=== PATIENT | female | born 2000 | race Caucasian/White ===

== ENCOUNTER 2020-03-18 08:32 | Emergency (ER) | payer OTHER, BC, SELFPAY ==
[2020-03-18 08:45] VITALS: BP 151/94; PULSE 64; RESP 16; TEMP 37; O2SAT 100
--- NOTE | 2020-03-18 09:13 | ED.FEMALEGU ---
HPI - Female Genitourinary General Chief complaint: Urogenital-Female Stated complaint: POS UTI Source: patient and RN notes reviewed Mode of arrival: ambulatory Limitations: no limitations History of Present Illness HPI Narrative: This is a 19-year-old white female presented to the urgent care with complaints of painful , hesitant urination with hematuria. Patient noted that in the past she has had a urinary tract infection and it resembles what she is experiencing today. she noted that that she woke up this morning with blood in her urine, and has a TM pain with her urination. Patient notes that she is not on her menstrual. We did complete a urinalysis due to bloody urine patient results are in an accurate. I will treat her for urinary tract infection Macrobid 100 mg p.o. twice daily for 7 days and Azo. The patient denies SOB, CP, palpitation, extremity numbness, lightheadedness, dizziness, constipation, diarrhea, chills, fever, vaginal discharge, pelvic pain, STDs, urinary incontinence, flank pain or genital itching. Pertinent past history: recurrent UTIs Related Data Home Medications Medication Instructions Recorded Confirmed dextroamphetamine-amphetamine 10 mg PO DAILY 03/18/20 03/18/20 Allergies Allergy/AdvReac Type Severity Reaction Status Date / Time Penicillins Allergy Unknown Hives Verified 03/18/20 08:50 Review of Systems Review of Systems: All systems reviewed & are unremarkable except as noted in HPI and below (10 point system review) [facility] Social History Social History Smoking status: Never smoker Alcohol intake: never Exam Narrative: Exam Narrative: GENERAL: This is a well-nourished, well-developed patient, in no apparent distress. HEAD: normocephalic, atraumatic. EYES: PERRL. Sclera clear/white. Vision is grossly intact. EARS: External ears normal, auditory canals clear and without drainage, TMs normal without perforation. Hearing grossly intact. NOSE: External nose normal with no obvious nasal discharge, nares without redness, no rhinorrhea. THROAT: Mucous membranes moist, posterior pharynx clear. NECK: Neck supple, non-tender without lymphadenopathy, masses or thyromegaly. CARDIOVASCULAR: Regular rate and rhythm without murmurs, gallops, or rubs. RESPIRATORY: Clear to auscultation. Breath sounds equal bilaterally. No wheezes, rales, or rhonchi. GASTROINTESTINAL: Abdomen soft, non-tender, nondistended. Bowel sounds are active. No hepato-splenomegaly, or palpable masses. No guarding. SKIN: warm, intact with no suspicious lesions or rash, good texture and turgor. NEURO: awake, alert, and oriented to person, place and time. There were no obvious focal neurologic abnormalities. Steady gait EXTREMITIES: Normal range of motion. No edema. No calf tenderness. Negative Homans sign bilaterally. BACK: Nontender without deformity or crepitance. No flank tenderness. Course Course Emergency Course: Patient was discharged with Macrobid 100 mg p.o. twice daily for 7 days and Azo Vital Signs Vital signs: Vital Signs Temperature 98.6 F 03/18/20 08:45 Pulse Rate 64 03/18/20 08:45 Respiratory Rate 16 03/18/20 08:45 Blood Pressure 151/94 H 03/18/20 08:45 Pulse Oximetry 100 03/18/20 08:45 Temperature 98.6 F 03/18/20 08:45 Pulse Rate 64 03/18/20 08:45 Respiratory Rate 16 03/18/20 08:45 Blood Pressure 151/94 H 03/18/20 08:45 Pulse Oximetry 100 03/18/20 08:45 MDM - Female Genitourinary Lab Data Attestation: I reviewed the patient's lab results. Lab results narrative: Patient with hematuria. Results might be inaccurate due to blood interference. Culture sent off Labs: Urine Glucose Negative Reference Range: Negative Urine Bilirubin 2+ Reference Range: Negative Urine Ketone
== END 2020-03-18 09:15 | disposition home or self-care (01) ==
PROVIDERS: Emergency Provider Nurse Practitioner; PCP Internal Medicine
DX: N30.00 Acute cystitis without hematuria (principal)
CPT/HCPCS: 81003; 87077; 87086; 87088; 87186; 99213; G0463